=== PATIENT | male | born 1990 | race Two or more races ===

== ENCOUNTER 2016-11-26 18:58 | Emergency (ER) | payer SELFPAY ==
[~2016-11-26] VITALS: Ht 177.8 cm; Wt 127.0 kg
[2016-11-26] MEDS ORDERED: IBUPROFEN 400 MG TABLET ONE (19:33)
[2016-11-26] MEDS ORDERED: IBUPROFEN 400 MG TABLET PO ONE (20:00)
[2016-11-26 22:29] VITALS: BP 138/89
== END 2016-11-26 22:29 | disposition home or self-care (01) ==
LOC: ER 19:00
DX: S40.022A Contusion of left upper arm, initial encounter (principal); S10.93XA Contusion of unspecified part of neck, initial encounter; S70.12XA Contusion of left thigh, initial encounter; V49.49XA Driver injured in collision with other motor vehicles in traffic accident, initial encounter; Y93.89 Activity, other specified; Y92.89 Other specified places as the place of occurrence of the external cause; Y99.9 Unspecified external cause status
CPT/HCPCS: 71100; 72050; 72125; 99284; A4606; L0172; Z7610